=== PATIENT | male | born 1935 ===

== ENCOUNTER 2023-03-07 07:53 | Day surgery (SDC) | payer MEDICARE, BC ==
[2023-03-06 15:49] VITALS: BMI 41.8
[~2023-03-07 07:53] MED LIST: EPINEPHrine 0.3 MG in Ophthalmic Irrigation Solution 500 ML IRR SCH
[2023-03-07] MEDS ORDERED: Cyclopentolate W/ Phenylephrin 5 ML BOT ONE (08:00)
[2023-03-07] MEDS ORDERED: PROPOFOL 20 ML ONE (09:10)
[2023-03-07] MEDS ORDERED: Lidocaine 1% PF 5 ML VIAL ONE (09:24)
[2023-03-07] MEDS ORDERED: CEFAZOLIN 1 GM VIAL ONE (09:24)
[2023-03-07] MEDS ORDERED: Maxitrol 0.1% Opth Oint 3.5 GM TUBE ONE (09:24)
[2023-03-07] MEDS ORDERED: Bupivacaine 0.75% 10 ML VIAL ONE (09:24)
[2023-03-07] MEDS ORDERED: Triamcinolone 40 MG/ML VIAL ONE (09:24)
[2023-03-07] MEDS ORDERED: Lidocaine 4% PF 5 ML AMP ONE (09:24)
[2023-03-07] MEDS ORDERED: PHENYLEPHRINE-NS 100 MCG/ML 10 ML SYRINGE ONE (09:25)
== END 2023-03-07 10:33 | disposition home or self-care (01) ==
LOC: SDC 07:53
PROVIDERS: ATTEND Ophthalmology Retina Specialist
PROC: 08T43ZZ Resection of Right Vitreous, Percutaneous Approach (ICD-10-PCS; principal; 2023-03-07)
DX: H43.11 Vitreous hemorrhage, right eye (principal)
CPT/HCPCS: J0171; J0690; J2704; J3301; J3490